=== PATIENT | female | born 1945 ===

== ENCOUNTER 2016-12-24 21:34 | Emergency (ER) | payer MEDICARE, OTHER ==
[2016-12-24 21:35] VITALS: BMI 43.0
[2016-12-24 21:50] VITALS: BP 149/84; PULSE 94; RESP 18; TEMP 98.4; O2SAT 96
--- NOTE | 2016-12-24 22:47 | ED PDOC ---
HPI: Abdomen Time Seen by Provider: 12/24/16 22:00 Chief Complaint (Nursing): Abdominal Pain Chief Complaint (Provider): Abdominal Pain History Per: Patient History/Exam Limitations: no limitations Onset/Duration Of Symptoms: Days (5) Current Symptoms Are (Timing): Better Severity: Moderate Location Of Pain/Discomfort: Diffuse Associated Symptoms: Vomiting Additional Complaint(s): Nicole Yao is a 71 y/o female presenting to the ER on 12/24/2016 with complaints of diffuse abdominal pain for five days. Patient reports associated vomiting that began last night. Patient further states she has not had bowel movements since onset of symptoms until today when she took a laxative. Patient has been seen at [facility] and by her PMD for her symptoms in the past and was diagnosed with constipation. However, patient is currently feeling some improvement upon arrival to the ED. Past Medical History Reviewed: Historical Data, Nursing Documentation, Vital Signs Vital Signs: Last Vital Signs Temp 98.4 F 12/24/16 21:42 Pulse 94 H 12/24/16 21:42 Resp 18 12/24/16 21:42 BP 149/84 12/24/16 21:42 Pulse Ox 96 12/25/16 04:12 - Medical History PMH: Anemia, Anxiety, Arthritis (GENERALIZED), Asthma, Depression, Diabetes, Gastritis, Gall Bladder Disease, HTN, Hypercholesterolemia, Kidney Stones, Chronic Kidney Disease - Surgical History Surgical History: Cholecystectomy (1983), Endoscopy Other surgeries: hysterectomy, right knee surgery, mastectomy - Family History Family History: States: Unknown Family Hx - Social History Current smoker - smoking cessation education provided: No Alcohol: None Drugs: Denies - Immunization History Hx Influenza Vaccination: Yes - Home Medications Home Medications: Ambulatory Orders Medication Instructions Recorded Bisacodyl [Dulcolax] 5 mg PO DAILY 06/08/16 Carvedilol [Coreg] 25 mg PO BID 06/08/16 Cetirizine HCl [Zyrtec] 10 mg PO DAILY 06/08/16 Cholecalciferol [Vitamin D 1000 IU] 50,000 iu PO DAILY 06/08/16 Divalproex [Depakote Sprinkles] 125 mg PO DAILY 06/08/16 Escitalopram [Lexapro] 10 mg PO DAILY 06/08/16 Ferrous Sulfate [Feosol] 325 mg PO DAILY 06/08/16 Levocetirizine Dihydrochloride 5 mg PO DAILY 06/08/16 Mirtazapine 15 mg PO HS 06/08/16 Montelukast [Singulair] 10 mg PO DAILY 06/08/16 QUEtiapine [Seroquel] 100 mg PO HS 06/08/16 Ranitidine HCl [Zantac 75] 75 mg PO BID 06/08/16 Rosuvastatin Calcium [Crestor] 40 mg PO DAILY 06/08/16 Omeprazole 40 mg PO DAILY #0 06/19/16 traMADol [Ultram] 50 mg PO TID PRN #0 tab 06/19/16 - Allergies Allergies/Adverse Reactions: Allergies Allergy/AdvReac Type Severity Reaction Status Date / Time iodine Allergy RASH Verified 12/24/16 21:50 Penicillins Allergy RASH Verified 12/24/16 21:50 Review of Systems ROS Statement: Except As Marked, All Systems Reviewed And Found Negative Constitutional: Negative for: Fever Gastrointestinal: Positive for: Vomiting, Abdominal Pain ((+) diffuse ) Physical Exam - Reviewed Nursing Documentation Reviewed: Yes Vital Signs Reviewed: Yes - Physical Exam Appears: Positive for: Non-toxic, No Acute Distress (pt is obese appearing ) Head Exam: Positive for: ATRAUMATIC, NORMOCEPHALIC Skin: Positive for: Normal Color. Negative for: Rash Eye Exam: Positive for: Normal appearance, EOMI, PERRL Neck: Positive for: Normal, Painless ROM, Supple Cardiovascular/Chest: Positive for: Regular Rate, Rhythm. Negative for: Murmur Respiratory: Positive for: Normal Breath Sounds. Negative for: Wheezing, Respiratory Distress Gastrointestinal/Abdominal: Positive for: Normal Exam, Soft. Negative for: Tenderness Extremity: Positive for: Normal ROM. Negative for: Deformity, Swelling Neurologic/Psych: Positive for: Alert, Oriented. Negative for: Motor/Sensory Deficits - Laboratory Results Result Diagrams: 12/24/16 00:04 12/24/16 23:50 - ECG O2 Sat by Pulse Oximetry: 96 Medical Decision Making Medical Decision Makin:45 Initial Impression- 71 y/o female with diffuse abdominal pain Initial Plan- * CMP * CBC w/ differential * 0400-Reassess: --Renal Insufficiency on Labs- pt aware of results pt has had several bowel movements while in the ER and will follow up as outpatient Documented by Virginia Nails, acting as a scribe for Isabell Krishnan MD. Documented by Deborah Velasco, acting as a scribe for Isabell Krishnan MD. All medical record entries made by the Scribe were at my direction and personally dictated by me. I have reviewed the chart and agree that the record accurately reflects my personal performance of the history, physical exam, medical decision making, and the department course for this patient. I have also personally directed, reviewed, and agree with the discharge instructions and disposition. Disposition - Clinical Impression Clinical Impression: Constipation - Patient ED Disposition Is Patient to be Admitted: No Counseled Patient/Family Regarding: Studies Performed, Diagnosis, Need For Followup - Disposition Referrals: [facility] [Outside] [facility] [Outside] Disposition: Routine/Home Disposition Time: 00:00 Condition: IMPROVED Additional Instructions: follow up with your primary doctor tomorrow return to the ED with any worsening or concerning symptoms. Instructions: Constipation (ED), High Fiber Diet (ED)
[2016-12-25 00:06] LABS: BASO # 0.1 K/uL (0.0-0.2); BASO % 0.6 % (0.0-2.0); EOS % 0.1 % (0.0-4.0); HEMATOCRIT 43.1 % (34.0-47.0); LYMPH # 1.9 K/uL (1.0-4.3); LYMPH % 13.1 % (20.0-40.0); MEAN CELL VOLUME 87.4 fl (81.0-99.0); MEAN CORPUSCULAR HEMOGLOBIN 28.6 pg (27.0-31.0); MEAN CORPUSCULAR HGB CONC 32.7 g/dL (33.0-37.0); MEAN PLATELET VOLUME 8.1 fl (7.2-11.7); MONO % 6.9 % (0.0-10.0); NEUT # 11.3 K/uL (1.8-7.0); NEUT % 79.3 % (50.0-75.0); RED CELL DISTRIBUTION WIDTH 14.9 % (11.5-14.5); WHITE BLOOD COUNT 14.3 K/uL (4.8-10.8)
[2016-12-25 00:17] LABS: BILIRUBIN,TOTAL 0.5 mg/dl (0.2-1.3); CALCIUM 9.8 mg/dL (8.4-10.2); POTASSIUM 4.3 MMOL/L (3.6-5.0); TOTAL PROTEIN 8.8 G/DL (6.3-8.2)
== END 2016-12-25 05:26 | disposition home or self-care (01) ==
LOC: H.ER 21:34
DX: K59.00 Constipation, unspecified (principal); E11.22 Type 2 diabetes mellitus with diabetic chronic kidney disease; E78.00 Pure hypercholesterolemia, unspecified; F32.9 Major depressive disorder, single episode, unspecified; F41.9 Anxiety disorder, unspecified; I12.9 Hypertensive chronic kidney disease with stage 1 through stage 4 chronic kidney disease, or unspecified chronic kidney disease; Z88.0 Allergy status to penicillin